=== PATIENT | female | born 1985 | race Caucasian/White ===

== ENCOUNTER 2017-05-02 05:00 | Inpatient (IN) ==
[2017-05-02] MEDS ORDERED: Famotidine 20 MG/2 ML VIAL IVP PRN (05:32)
[2017-05-02] MEDS ORDERED: Metoclopramide 10 MG/2 ML VIAL IVP PRN (05:32)
[2017-05-02] MEDS ORDERED: *HR* Nalbuphine 20 MG/ML AMPUL IVP PRN (05:32)
[2017-05-02] MEDS ORDERED: Naloxone 0.4 MG/ML INJ IVP PRN (05:32)
[2017-05-02] MEDS ORDERED: D5% in 0.45% NACL 1,000 ML IVC SCH (05:45)
[2017-05-02 05:59] LABS: Basophils % 0.3 %; Eosinophils # 0.1 K/mcL (0.0-0.6); Eosinophils % 0.8 %; Hematocrit 37.3 % (35.3-44.9); Hemoglobin 12.7 g/dL (11.5-15.4); Immature Granulocytes % 0.6 % (0-4); Lymphocytes # 2.7 K/mcL (0.6-4.6); Lymphocytes % 23.5 %; Mean Platelet Volume 10.3 fL (9.4-12.4); Monocytes % 8.2 %; Neutrophils # 7.8 K/mcL (1.6-8.9); Platelet Count 201 K/mcL (140-400); Red Cell Distribution Width 12.7 % (11.5-14.5); Segmented Neutrophils % 66.6 %
[2017-05-02] MEDS ORDERED: miSOPROStol 100 MCG TABLET PO SCH (06:00)
[2017-05-02 06:07] LABS: Amphetamine Screen,Urine Negative ng/mL (Cutoff=1000); Barbiturate Screen,Urine Negative ng/mL (Cutoff=200); Benzodiazepines Screen,Urine Negative ng/mL (Cutoff=200); Cannabinoid Screen,Urine Negative ng/mL (Cutoff = 50); Cocaine Screen,Urine Negative ng/mL (Cutoff= 300); Opiate Screen,Urine Negative ng/mL (Cutoff=300); Phencyclidine Screen,Urine Negative ng/mL (Cutoff=25)
--- NOTE | 2017-05-02 08:39 | OB/GYN History & Physical ---
Date of Encounter: 05/02/17 Time of Encounter: 08:37 Assessment and Plan (1) 39 weeks gestation of Current visit: Yes Status: Acute Patient has been compliant with care what she was established. Her first visit was around 14 weeks with unknown LMP. (2) Positive test for herpes simplex virus (HSV) antibody Current visit: Yes Status: Acute The patient was prescribed Valtrex at 35 weeks. She began taking it about 1 week ago. She has never had an outbreak that she is aware of. It is of unknown type, 1 or 2. She currently is asymptomatic (3) UTI (urinary tract infection) during Current visit: Yes Status: Acute Urine cultures have been followed during . Her most recent urine culture was negative Qualifiers: Trimester: third trimester Qualified Code(s): O23.43 - Unspecified infection of urinary tract in , third trimester (4) Late care affecting in third trimester Current visit: Yes Status: Acute Patient receiving induction of labor at 39 weeks and 2 days with a Jessica score of 10. Informed consent obtained. The patient has been compliant with care once established (5) Tobacco use affecting in third trimester, antepartum Current visit: Yes Status: Acute The patient reports smoking cessation during after counseling History of Present Illness Chief complaint: IOL 39 weeks HPI: Ms. Benjamin is a 32 year old female at 39 weeks and 2 days who presents to labor and delivery for induction of labor. Her Jessica score is 10. She has given informed consent. She has had a complicated by late care, urinary tract infection in and history of HSV positive test without symptoms. Her blood type is A+, she is rubella immune, varicella immune , GBS negative. She denies any significant contractions prior to arrival but is feeling her contractions now after 50 MCG's of oral Cytotec. She denies any rupture membranes. She had a small amount of bleeding after her last exam. Fetus has been active. She has been measuring small for dates but ultrasound has been reassuring at the 50th percentile with normal fluid. Past Med Surg Social Fam HX - Past Medical History Source: patient, old records reviewed Medical history: other (Abnormal Pap smear, cognitive impairment) Psychiatric history: ADHD - Past Surgical History Surgical History: other (Hysteroscopy with IUD removal) - Social History Smoking Status: Former smoker Smokeless Tobacco Status: No Alcohol use: none Drug use: none - Family History Mother Adopted: No Family Member Ethnicity: Non- Living Status: Unknown Hx Family Cardiac Disorders: No Hx Family Respiratory Disorders: No Hx Family Cancer: No Hx Family GI Disorders: No Hx Family Genitourinary Disorders: No Hx Family Endocrine Disorder: No Hx Family Musculoskeletal Disorders: No Hx Family Neuromuscular Disorders: No Hx Family Neurologic Disorders: No Hx Family HEENT Disorders: No Hx Family Autoimmune Disorders: No Hx Family Reproductive Disorders: No Hx Family Psychosocial Disorders: No Hx Family Medical Disorders: Yes (blood clots) Obstetrical History - Pregnancies : 1 Medications and Allergies Acyclovir [Zovirax] 500 mg PO DAILY 05/02/17 [History] Pnv Cmb#21/Iron/Folic Acid [ Complete Caplet] 1 tab PO DAILY 05/02/17 [ History] 3 Allergy/AdvReac Type Severity Reaction Status Date / Time No Known Allergies Allergy Verified 03/05/16 18:46 Review of System OB All systems PM: reviewed and no additional remarkable complaints except as stated - Constitutional Constitutional ROS IM: fatigue, weight gain - Gastrointestinal Gastrointestinal: cramping - Menstruation Menstruation: as per HPI Exam - Vital Signs Vital signs: Afebrile, vital signs stable - Constitutional Constitutional: well developed, well nourished, no acute distress, average body habitus - HEENT HEENT: Normocephaly, Mucus Membranes Moist - Neck Neck exam: normal inspection, supple - Lungs Respiratory exam: CTAB - Cardiovascular Cardiovascular exam: RRR - Breasts Breast: bilateral: normal (Gravid) - Abdomen Abdomen: Present: bowel sounds normal, gravid, non tender - Extremities Extremities exam: normal inspection, warm Deep Tendon Reflex Grade: 3+ Normal But Brisk - Vulva Vulva: bilateral: normal (No lesions) - Vagina Vagina: Present: discharge (Gr portal een) - Cervix Dilation: 3 Effacement: 80 Station: -1 (Normally.) - Anus/Rectum Anus/Rectum: Present: normal perianal skin Results Result Diagrams: 05/02/17 05:26 Abnormal lab results WBC 11.6 K/mcL (4.3-11.1) H 05/02/17 05:26 All other labs normal. - VTE Reasons for not Prescribing Prophylaxis: Treatment not Indicated - Low risk for VTE
[2017-05-02] MEDS ORDERED: Bupivacaine-MPF 0.25% 10 ML VIAL EP ONE (08:54)
[2017-05-02] MEDS ORDERED: *HR* FentaNYL (PF) 100 MCG/2 ML VIAL EP ONE (08:54)
--- NOTE | 2017-05-02 08:54 | Anesthesia Evaluation PreOp ---
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 Significant HX Other Medical History: Denies Any Significant HX Anesthesia History: No Prior Anesthetic Complications (patient was adopted so unsure if ever had GA; denies having NA; patient unaware of family h/o anesthesia complications) : Yes Test: Positive Alcohol Use: none Drug use: none Medications and Allergies Acyclovir [Zovirax] 500 mg PO DAILY 05/02/17 [History] Pnv Cmb#21/Iron/Folic Acid [ Complete Caplet] 1 tab PO DAILY 05/02/17 [ History] 3 Allergy/AdvReac Type Severity Reaction Status Date / Time No Known Allergies Allergy Verified 03/05/16 18:46 - Meds/Allergy Pre-op Review Medications Reviewed: Yes Allergies Reviewed: Yes Beta Blockers on Current Med List: No Anesthesia Results - Labs 05/02/17 05:26 Anesthesia Exam 112/63, hr80, RR18 O2 Sat Height 1.57 m Weight 72.575 kg NPO (# of Hours): solids > 8hr Pain Scale: 3 Pain Scale Used: Chester-Maxwell (Faces) - HEENT Pupil (Motor): Pupils equal Mallampati: III Teeth: Normal Oral Opening: Greater than 3 - ARBORICULTURE TEACHER LOC: Oriented ARBORICULTURE TEACHER Motor: Normal RUE, Normal LUE, Normal RLE, Normal LLE, Normal Face ARBORICULTURE TEACHER Sensory: Normal: RUE, LUE, RLE, LLE, Face - Cardiac Rhythm: Regular Murmur: None - Pulmonary Breath Sounds: bilateral Clear Respiratory Effort: Symmetrical Anesthesia Assess/Plan ASA Score: 2 Modified Deisi Scale for Level of Consciousness: Cooperative, oriented, and tranquil Anesthetic Plan: Regional Autologous Blood: No Monitoring Plan: Standard Monitors Recovery Plan: Other
[2017-05-02] MEDS ORDERED: Epidural Premix (fent/bupiv) 110 ML EP ONE ×2 (08:59→20:09)
[2017-05-02] MEDS ORDERED: Bupivacaine-MPF 0.25% 10 ML VIAL ONE (08:59)
[2017-05-02] MEDS ORDERED: *HR* FentaNYL (PF) 100 MCG/2 ML VIAL ONE (09:00)
[2017-05-02] MEDS ORDERED: Epidural Premix (fent/bupiv) 110 ML EP SCH (09:00)
--- NOTE | 2017-05-02 12:06 | OB Labor Progress Note ---
Date of Encounter: 05/02/17 Time of Encounter: 12:04 Labor Progress Note - Subjective Subjective: Patient uncomfortable with contractions. She had oral Cytotec, 50 MCG's at 0600. - Vital Signs Vital Signs: Afebrile, vital signs stable - Cervix Cervix: 4/80/0, vertex - Heart Tones Heart Tones: 120s, CAT 1 - [place]: Contractions every 2-4 minutes - Interventions Interventions: 39 week 2 day IUP for induction of labor due to late care with other risk factors. - Plan Plan: Amniotomy performed with a small amount of blood-tinged fluid seen. IUPC placed without difficulty. Patient will have IV fluids started. Epidural and pain management as requested. Anticipate vaginal delivery. Augment if needed
[2017-05-02] MEDS ORDERED: Ringers Solution, Lactated 1,000 ML ONE (13:15)
--- NOTE | 2017-05-02 14:11 | Anesthesia Procedures ---
Date of Encounter: 05/02/17 Time of Encounter: 14:09 Procedures: Anesthesia - Epidural/Spinal Patient ID/Chart reviewed: Yes Patient examined: Yes OB Eval: Gestational age: 39 weeks 2 days OB Eval: : 1 OB Eval: Hx Para: 0 OB Eval: Dilated at (cm): 4 OB Eval: Contractions: Non-stressed pattern Consent Obtained: Yes Supplemental Oxygen: None/Room Air Site Prep: Aseptic Technique, Sterile prep and drape, Povidone-Iodine 1% Patient position: upright Local Anesthetic: Lidocaine 1% Amount of Local Anesthetic used: 5 Touhy Needle Gauge: 18 Touhy Needle Depth (cm): 6 Catheter Depth at Skin (cm): 11 Test Dose (1.5% Lido + Epi): Volume given (mls): 5 Test Dose Result: Negative Loading Dose: 0.25% Marcaine (mls): 5 Loading Dose: Fentanyl (mcg): 100 Loading Dose Administered: Thru Catheter Infusion Med: 0.125% Bupivacaine w/ 2 mcg/ml Fentanyl Infusion Rate (mls/hr): 12 (w/ demand bolus of 5mL q20min PRN) Catheter Secured in Place: Tegaderm, Tape Interspace Used: L3-L4 Loss of Resistance (CALI): Yes Blood: No CSF: No Paresthesia: No Procedure: successful on 1st attempt Vitals + FHT's: please see [facility]uevano's electronic records for VS entry
[2017-05-02] MEDS ORDERED: Oxytocin 20 units/ LR 1000 mL 20 UNIT/1,000 ML BAG IVC ONE (14:58)
--- NOTE | 2017-05-02 15:44 | OB Labor Progress Note ---
Date of Encounter: 05/02/17 Time of Encounter: 15:10 Labor Progress Note - Subjective Subjective: Patient comfortable after epidural - Vital Signs Vital Signs: Afebrile vital signs stable - Cervix Cervix: 5/90/0 - Heart Tones Heart Tones: 110s baseline, CAT 1 - [place]: Contractions every 2-3 minutes, 25-30 mmHg after single dose of Cytotec at 0600 - Interventions Interventions: 39 week 2 day IUP, high-risk with late care and multiple risk factors for induction of labor - Plan Plan: Augment with Pitocin. Anticipate vaginal delivery
[2017-05-02] MEDS ORDERED: Oxytocin 20 units/ LR 1000 mL 20 UNIT/1,000 ML BAG IVC SCH (16:00)
[2017-05-03] MEDS ORDERED: Lidocaine/EPI 1:100k 1% 30 ML VIAL ONE (00:31)
--- NOTE | 2017-05-03 01:01 | OB/GYN Procedure Note ---
Delivery - Delivery Date: 05/03/17 Provider: Gege Graves Intrapartum events: none Delivery induction: misoprostol Delivery augmentation: rupture of membranes, pitocin Delivery monitor: external FHT, external uterine, internal uterine Anesthesia: local, intravenous, epidural Estimated Blood Loss: 200 - Infant (s) A Delivery Date: 05/03/17 Delivery Time: 00:28 Presentation: vertex Position: SARAH Route of delivery: Gender: Male Viability: Viable Pounds: 6 Ounces: 9 at 1 minute: 8 at 5 mins: 9 Shoulder Dystocia: not encountered Specimens collected: cord blood Placenta: spontaneous Cord: nuchal cord, 3 umbilical vessels, nuchal reduced - Repair Episiotomy: none Laceration Description: Perineal - 2nd Degree - Complications Delivery complications: none Delivery comments: The patient was complete and pushing with epidural anesthesia with a spontaneous vaginal delivery in the SARAH position of a vigorous male weighing 6 lbs. 9 oz. with Apgars of 8 at 1 minute and 9 at 5 minutes. Nuchal cord X one was reduced. was placed on the maternal abdomen. The cord was clamped and cut after pulsations ceased. Cord blood obtained. Three- vessel cord confirmed. The placenta was delivered spontaneous and intact. Second-degree perineal laceration was repaired with 3-0 Vicryl in the usual fashion. No other vaginal or cervical lacerations were identified. Estimated blood loss 200 mL, complications none - Disposition Mom disposition: stable in LDR [place] disposition: stable in LDR
[2017-05-03] MEDS ORDERED: Acetaminophen 325 MG TABLET PO PRN (01:38)
[2017-05-03] MEDS ORDERED: Rho Immune Globulin 1,500 UNIT SYRINGE IM PRN (01:38)
[2017-05-03] MEDS ORDERED: Oxytocin 20 units/ LR 1000 mL 20 UNIT/1,000 ML BAG IVC SCH (01:38)
[2017-05-03] MEDS: Ibuprofen 600 MG TABLET PO SCH ×2 (11:06→18:57)
[2017-05-03] MEDS: Prenatal Vit/FA 1 EACH TABLET PO SCH (11:07)
[2017-05-04] MEDS: Ibuprofen 600 MG TABLET PO SCH ×3 (00:57→13:38)
[2017-05-04] MEDS: Prenatal Vit/FA 1 EACH TABLET PO SCH (08:14)
[2017-05-04 08:37] VITALS: BP 118/76
--- NOTE | 2017-05-04 09:03 | Discharge Summary ---
Date of Encounter: 05/04/17 Time of Encounter: 09:01 - Discharge Diagnosis (1) Vaginal delivery Priority: Primary Status: Acute Comments: Patient reports feeling well this AM. Lochia light. Ambulating. Tolerating regular diet. Voiding without difficulty. Mood is good. Pain well controlled. (2) Breast feeding status of mother Priority: Secondary Status: Acute Comments: Doing well without difficulty. likes right breast greater than left. Patient would like prescription for breast pump. - Discharge Medications Prescriptions: Ibuprofen [Motrin] 600 mg PO Q6HR #30 tablet Breast Pump [BREAST PUMP] 1 each .ROUTE AD #1 each Docusate [Colace] 100 mg PO BID #60 capsule Home Medications: Acyclovir [Zovirax] 500 mg PO DAILY 05/02/17 [History] Pnv Cmb#21/Iron/Folic Acid [ Complete Caplet] 1 tab PO DAILY 05/02/17 [ History] Breast Pump [BREAST PUMP] 1 each .ROUTE AD #1 each 05/04/17 [Rx] Docusate [Colace] 100 mg PO BID #60 capsule 05/04/17 [Rx] Ibuprofen [Motrin] 600 mg PO Q6HR #30 tablet 05/04/17 [Rx] Vit/FA 1 each PO DAILY tablet 05/04/17 [Rx] Allergies/Adverse Reactions: 3 Allergy/AdvReac Type Severity Reaction Status Date / Time No Known Allergies Allergy Verified 03/05/16 18:46 Data Procedures and tests throughout hospitalization: Laboratory Tests 05/02/17 05/02/17 05:26 05:26 WBC 11.6 H RBC 4.10 Hgb 12.7 Hct 37.3 MCV 91.0 MCH 31.0 MCHC 34.0 RDW 12.7 Plt Count 201 MPV 10.3 Immature Gran % 0.6 Seg Neutrophils % 66.6 Lymphocytes % 23.5 Monocytes % 8.2 Eosinophils % 0.8 Basophils % 0.3 Neutrophils # 7.8 Lymphocytes # 2.7 Monocytes # 1.0 Eosinophils # 0.1 Basophils # 0.0 Urine Opiates Screen Negative Ur Barbiturates Screen Negative Ur Phencyclidine Scrn Negative Ur Amphetamines Screen Negative U Benzodiazepines Scrn Negative Urine Cocaine Screen Negative U Marijuana (THC) Screen Negative Date of admission: 05/02/17 05:02 Primary care physician: PCP NONE Consults: 05/03/17 01:38 Consult to Cloth Layer [CONS] Routine Comment: Vaginal delivery, consult needed 05/03/17 04:43 Consult to Hydrology Technician (W&C) [CONS] Stat Reason For Exam: Reason for SW Consult: living environment, pt living in 3 bedroom trailer with 10 other people - pt and spouse with children and 2 other couples with children. smoking in house Discharging clinician: Maritza Perez Anticipated date of discharge: 05/04/17 - Patient Status Disposition: Home, Self-Care Condition: Good Functional capacity at discharge: independent ambulation Overall status at discharge: patient is back to baseline - Discharge Instructions Follow Up With: Gege Graves MD [Partnered Physician] - - Diet and Activity Diet: advance to your usual diet Hospital Course Episiotomy: none Hospital course: - Delivery Date: 05/03/17 Provider: Gege Graves Intrapartum events: none Delivery induction: misoprostol Delivery augmentation: rupture of membranes, pitocin Delivery monitor: external FHT, external uterine, internal uterine Anesthesia: local, intravenous, epidural Estimated Blood Loss: 200 - (s) Infant A Infant Delivery Date: 05/03/17 Delivery Time: 00:28 Presentation: vertex Position: SARAH Route of delivery: Gender: Male Viability: Viable Pounds: 6 Ounces: 9 at 1 minute: 8 at 5 mins: 9 Shoulder Dystocia: not encountered Specimens collected: cord blood Placenta: spontaneous Cord: nuchal cord, 3 umbilical vessels, nuchal reduced - Repair Episiotomy: none Laceration Description: Perineal - 2nd Degree - Complications Delivery complications: none - Disposition Mom disposition: home post day 1 [place] disposition: home with mother and Time Attestation: Total time spent providing and/or coordinating discharge services: Exam - Constitutional Vitals: Temp Pulse Resp BP Pulse Ox 98 F 88 12 118/76 99 05/04/17 08:00 05/04/17 08:00 05/04/17 08:00 05/04/17 08:00 05/04/17 08:00 General appearance IM: A&O X 3, no acute distress, answers questions appropriately - Respiratory Respiratory exam: Absent: respiratory distress - Cardiovascular Cardiovascular exam IM: Absent: irregular rhythm - GI/Abdominal Additional comments: Fundus palpated at umbilicus. No tenderness or masses felt on exam - Extremities Exam Extremities exam IM: Absent: calf tenderness - Neurological Exam Neurological exam: alert, oriented X3 - Attending Attestation I have seen and evaluated this patient in addition to the resident physician. I agree with her assessment and plan as outlined.
[2017-05-04 09:32] LABS: Basophils # 0.1 K/mcL (0.0-0.2); Basophils % 0.3 %; Eosinophils % 0.2 %; Hematocrit 30.7 % (35.3-44.9); Immature Granulocytes % 0.6 % (0-4); Lymphocytes % 15.9 %; Mean Corpuscular HGB Conc 33.6 g/dL (31.6-35.5); Mean Corpuscular Hemoglobin 30.7 pg (28.0-33.3); Mean Corpuscular Volume 91.4 fL (83.0-100.0); Mean Platelet Volume 10.9 fL (9.4-12.4); Monocytes # 1.2 K/mcL (0.0-1.3); Monocytes % 6.2 %; Neutrophils # 14.6 K/mcL (1.6-8.9); Platelet Count 195 K/mcL (140-400); Red Blood Count 3.36 M/mcL (3.82-4.97); Red Cell Distribution Width 12.9 % (11.5-14.5); Segmented Neutrophils % 76.8 %
[2017-05-04 09:46] LABS: Hemoglobin 10.3 g/dL (11.5-15.4)
== END 2017-05-04 14:01 | disposition home or self-care (01) | DRG 560 ==
LOC: 1NENULAB 05:02 → 1NENUOBS 05-03 03:23
PROVIDERS: ADMIT Obstetrics & Gynecology; ATTEND Obstetrics & Gynecology